=== PATIENT | female | born 1960 | race Caucasian/White ===

== ENCOUNTER → 2018-12-03 | Outpatient (CLI) | payer OTHER ==
[~2018-12-03] MED LIST: IBUHYD; LORA1 PO; NAPR500; OXYACE7.5T PO
== END ==
LOC: LAB SHORT 09:45 → LAB EV 09:45
DX: M79.662 Pain in left lower leg (principal)
CPT/HCPCS: 85379

== ENCOUNTER 2021-01-07 09:22 | Day surgery (SDC) | payer OTHER | END 2021-01-07 23:34 | disposition home or self-care (01) | LOC: MOI MAM 09:22 | DX: N60.91 Unspecified benign mammary dysplasia of right breast (principal) | CPT/HCPCS: 19081; 88305; A4648 ==

== ENCOUNTER 2022-02-04 09:24 | Day surgery (SDC) | payer OTHER ==
[~2022-02-04] VITALS: Ht 167.6 cm; Wt 86.2 kg
[~2022-02-04 09:24] MED LIST changes: -NAPR500; +NAPR500 PO
[2022-02-04] MEDS ORDERED: BUPR150ER PO (09:53)
[2022-02-04] MEDS ORDERED: METO25ER PO (09:53)
[2022-02-04] MEDS ORDERED: OMEGA-3 + VITA200 ML PO (09:56)
[2022-02-04] MEDS ORDERED: OMEP20ER PO (09:56)
[2022-02-04] MEDS ORDERED: Ventolin/Prove6.7 GM INH (09:57)
--- NOTE | 2022-02-04 10:22 | NUR ---
Ambulatory in Day Surgery History, Chart, Medications and Allergies reviewed before start of procedure. Pre-Op teaching done. Pt verbalizes understanding. Patient States Post-Procedure ride home has been arranged with .
--- NOTE | 2022-02-04 11:09 | NUR ---
02/04/22 1109 Riana Saleh HISTORY, CHART, MEDICATIONS AND ALLERGIES REVIEWED BEFORE START OF PROCEDURE. PATIENT CONFIRMS NPO STATUS AND AGREES WITH SCHEDULED PROCEDURE. 3-LEAD EKG REVIEWED WITH PHYSICIAN PRIOR TO START OF PROCEDURE. MONITOR INTACT WITH CONTINUOUS PULSE OXIMETRY,CAPNOGRAPHY, 3-LEAD EKG, INTERMITTENT BP. SUPPLEMENTAL O2 TO BE TITRATED THROUGHOUT PROCEDURE TO MAINTAIN O2 SATURATION ABOVE 90%. PATIENT DETERMINED TO BE ASA APPROPRIATE FOR PROPOFOL SEDATION PRIOR TO START OF PROCEDURE BY DR. TRAN.
--- NOTE | 2022-02-04 12:30 | NUR ---
Patient up to Ambulate independently. Gait steady. Discharge instructions reviewed with patient. Patient verbalizes understanding. Copy given to patient to take home. Patient States Post-Procedure ride home has been arranged. Discharged via wheelchair to private car for ride home.
== END 2022-02-04 12:30 | disposition home or self-care (01) ==
LOC: ORSCMMR 09:24 → ORD 10:30 → ORSCMMR 12:30 → ORSCSDS 03-04 10:15
PROVIDERS: Internal Medicine Gastroenterology
PROC: 0DB68ZX Excision of Stomach, Via Natural or Artificial Opening Endoscopic, Diagnostic (ICD-10-PCS; principal; 2022-02-04 10:30)
PROC: 0D757ZZ Dilation of Esophagus, Via Natural or Artificial Opening (ICD-10-PCS; principal; 2022-02-04 10:30)
PROC: 0DB98ZX Excision of Duodenum, Via Natural or Artificial Opening Endoscopic, Diagnostic (ICD-10-PCS; principal; 2022-02-04 10:30)
DX: R13.10 Dysphagia, unspecified (principal); R10.13 Epigastric pain; K21.9 Gastro-esophageal reflux disease without esophagitis; K22.2 Esophageal obstruction; K44.9 Diaphragmatic hernia without obstruction or gangrene; K29.70 Gastritis, unspecified, without bleeding; J45.909 Unspecified asthma, uncomplicated; E78.00 Pure hypercholesterolemia, unspecified; Z79.899 Other long term (current) drug therapy
CPT/HCPCS: 88305; 88342; J2704; J7120

== ENCOUNTER → 2025-01-09 | Outpatient (CLI) | payer OTHER ==
[~2025-01-09] MED LIST changes: +BUPR150ER PO; +METO25ER PO; +OMEGA-3 + VITA200 ML PO; +OMEP20ER PO; +Ventolin/Prove6.7 GM INH
== END ==
LOC: LAB SHORT 09:21
DX: N95.1 Menopausal and female climacteric states (principal)
CPT/HCPCS: 85651